=== PATIENT | female | born 1960 | race Caucasian/White ===

== ENCOUNTER 2017-07-10 08:33 | Emergency (ER) | payer OTHER ==
--- NOTE | 2017-07-10 11:14 | RAD ---
INDICATION: Blurry vision, word finding difficulty. COMPARISON: There are no prior studies available for comparison. TECHNIQUE: Contiguous axial sections of the brain were obtained from the skull base to the vertex without contrast. FINDINGS: The ventricles, cisterns and sulci are within normal limits. No significant focal abnormality or mass effect is seen. There is no evidence for hemorrhage. No significant focal osseous abnormality is seen. The visualized portion of the paranasal sinuses and mastoid air cells appear clear. IMPRESSION: NO EVIDENCE FOR GROSS ACUTE INFARCT, MASS EFFECT OR HEMORRHAGE.
--- NOTE | 2017-07-10 11:28 | RAD ---
INDICATION: Chest pain. COMPARISON: Comparison is made with a prior study from [facility] 2003. TECHNIQUE: A portable view of the chest was obtained. FINDINGS: Cardiac and mediastinal contours appear to be within normal limits. The lungs are clear. No pleural effusion is seen. There are nodular densities which project above both lung bases most consistent with nipple shadows. IMPRESSION: NO EVIDENCE FOR ACUTE DISEASE.
[2017-07-10 11:29] LABS: Hematocrit 40 % (35-47); Hemoglobin 13.3 g/dl (12.0-16.0); Mean Corpuscular HGB Conc 33 g/dl (31-36); Mean Corpuscular Hemoglobin 28 pg (27-31); Mean Corpuscular Volume 85 fL (80-97); Mean Platelet Volume 9 um3 (7.4-10.4); Red Blood Count 4.75 10^6/ul (4.0-5.4); Red Cell Distribution Width 13 % (10.5-15); White Blood Count 4.6 10^3/ul (3.5-10.8)
[2017-07-10 11:38] LABS: Urine Bilirubin Negative (Negative); Urine Glucose Negative (Negative); Urine Nitrite Negative (Negative)
[2017-07-10 11:49] LABS: Albumin 4.1 g/dL (3.2-5.2); BUN/Creatinine Ratio 10.4 (8-20); Calcium 9.4 mg/dL (8.6-10.3); EGFR African American 100.5 (>60); EGFR Non-African American 78.1 (>60); Globulin 2.5 g/dL (2-4); Potassium 3.7 mmol/L (3.5-5.0); Total Bilirubin 1.1 mg/dL (0.2-1.0); Total Protein 6.6 g/dL (6.4-8.9)
[2017-07-10 12:11] LABS: TSH (Thyroid Stimulating Horm) 4.17 mcIU/mL (0.34-5.60)
[2017-07-10 12:13] LABS: Free T4 1.06 ng/dL (0.61-1.12)
[2017-07-10] MEDS ORDERED: Meclizine TAB* 12.5 MG PO ONE (13:07)
[2017-07-10 15:17] VITALS: BP 102/73
--- NOTE | 2017-07-11 14:16 | ED ---
Manju Brandon Alfonso, scribed for Alexandru Trent MD on 07/10/17 at 1046 . Dizziness - HPI Summary HPI Summary: This patient is a 56 year old F presenting to [facility] accompanied by with a chief complaint of dizziness progressively worsening since a few weeks ago, worse since 3 days ago. She states I feel off balance and experiences a picture of the room spinning for a minute. The patient rates the pain 0/10 in severity. Symptoms aggravated by turning her head. Symptoms alleviated by nothing. Patient reports nausea, loss of appetite, more frequency BM ( also), abdominal pain (last week before the dizziness), numbness and tingling of the LLE below the knee (months), fatigue, CP (intermittent 3-4 minute episodes aggravated by nothing), crying, confusion, difficulty word finding, blurred vision, flashing light in left eye, tinnitus (1 minute), and pain with swallowing. Patient denies headache, ear ache, hearing loss, sinus congestion, back pain, and leg weakness. - History Of Current Complaint Chief Complaint: EDDizziness Stated Complaint: DIZZY Time Seen by Provider: 07/10/17 08:54 Hx Obtained From: Patient Onset/Duration: Still Present Timing: Intermittent Episode Lasting - minute Character: Room Spinning Aggravating Factor(s): Change In Head Position Alleviating Factor(s): Nothing Associated Signs And Symptoms: Positive: Other: - Patient reports nausea, loss of appetite, more frequency BM ( also), abdominal pain (last week before the dizziness), numbness and tingling of the LLE below the knee (months), fatigue, CP (intermittent 3-4 minute episodes aggravated by nothing), crying, confusion, difficulty word finding, blurred vision, flashing light in left eye, tinnitus (1 minute), and pain with swallowing. Patient denies headache, ear ache , hearing loss, and sinus congestion, back pain, and leg weakness. - Allergies/Home Medications Allergies/Adverse Reactions: Allergies Allergy/AdvReac Type Severity Reaction Status Date / Time Acetaminophen [From Percocet] Allergy See Comment Verified 07/10/17 09:03 Oxycodone [From Percocet] Allergy See Comment Verified 07/10/17 09:03 Penicillins [PCN] Allergy Nausea And Verified 07/10/17 09:03 Vomiting STATES ALLERGIC TO MANY DRUGS Allergy Unknown Uncoded 07/10/17 08:37 Reaction Details PMH/Surg Hx/FS Hx/Imm Hx Musculoskeletal History: Comment Only: Hx Rheumatoid Arthritis - ARTHRITIS Opthamlomology History: Denies: Hx Legally Blind EENT History: Denies: Hx Deafness Infectious Disease History: No Infectious Disease History: Denies: Traveled Outside the [place] in Last 30 Days - Family History Known Family History: Positive: Cardiac Disease, Other - Bipolar - Social History Alcohol Use: None Substance Use Type: Reports: None Smoking Status (MU): Former Smoker Review of Systems Positive: Fatigue. Negative: Fever, Chills Positive: Blurred Vision, Other - , flashing light in left eye, tinnitus (1 minute). Negative: Erythema Positive: Other - pain with swallowing; negative hearing loss, sinus congestion. Negative: Sore Throat, Ear Ache Positive: Chest Pain Negative: Shortness Of Breath, Cough Positive: Abdominal Pain, Nausea, Other - loss of appetite, more frequency BM ( also). Negative: Vomiting Negative: dysuria, hematuria Positive: Other - Negative back pain. Negative: Myalgia, Edema Negative: Rash Neurological: Other - Dizziness, numbness and tingling of the LLE below the knee (months), crying, confusion, difficulty word finding; negative headache, leg weakness All Other Systems Reviewed And Are Negative: Yes Physical Exam - Summary Physical Exam Summary: Constitutional: Well-developed, Well-nourished, Alert. (-) Distressed Skin: Warm, Dry HENT: Normocephalic; Atraumatic Eyes: Conjunctiva normal Eyes: Conjunctiva normal. Josiah-Hallpike Test Left sided a little nystagmus and Right sided large amplitude nystagmus Neck: Musculoskeletal ROM normal neck. (-) JVD, (-) Stridor, (-) Tracheal deviation Cardio: Rhythm regular, rate normal, Heart sounds normal; Intact distal pulses; The pedal pulses are 2+ and symmetric. Radial pulses are 2+ and symmetric. (-) Murmur Pulmonary/Chest wall: Effort normal. (-) Respiratory distress, (-) Wheezes, (-) Rales Abd: Soft. (-) Tenderness, (-) Distension, (-) Guarding, (-) Rebound Musculoskeletal: (-) Edema Lymph: (-) Cervical adenopathy Neuro: Alert, Oriented x3, Strength normal, Cranial nerves II-XII are grossly intact. (-) Dysmetria, (-) Nystagmus, (-) Ataxia by finger to nose testing, (-) Sensory deficit. Psych: Mood and affect Normal Triage Information Reviewed: Yes Vital Signs On Initial Exam: Initial Vitals Temp Pulse Resp BP Pulse Ox 97.5 F 95 16 126/73 99 07/10/17 08:37 07/10/17 08:37 07/10/17 08:37 07/10/17 08:37 07/10/17 08:37 Vital Signs Reviewed: Yes - Kj Coma Scale Coma Scale Total: 15 Diagnostics - Vital Signs Vital Signs Temp Pulse Resp BP Pulse Ox 07/10/17 08:56 18 07/10/17 08:51 85 22 100 07/10/17 08:49 122/71 07/10/17 08:37 97.5 F 95 16 126/73 99 - Laboratory Result Diagrams: 07/10/17 10:56 07/10/17 10:56 Lab Statement: Any lab studies that have been ordered have been reviewed, and results considered in the medical decision making process. - Radiology CXR Radiology Interpretation Completed By: Radiologist - NO EVIDENCE FOR ACUTE DISEASE. ED physician has reviewed this radiology report and agrees. - CT Brain CT Interpretation Completed By: Radiologist - NO EVIDENCE FOR GROSS ACUTE INFARCT, MASS EFFECT OR HEMORRHAGE. ED physician has reviewed this radiology report and agrees. - EKG 1047 Cardiac Rate: NL - 70 BPM EKG Rhythm: Sinus Rhythm EKG Interpretation: No STEMI Re-Evaluation - Re-Evaluation First Eval Re-Evaluation Time: 15:05 Change: Improved Dizzy Course/Dx - Course Assessment/Plan: This patient is a 56 year old F presenting to [facility] accompanied by with a chief complaint of dizziness progressively worsening since a few weeks ago, worse since 3 days ago. She states I feel off balance and experiences a picture of the room spinning for a minute. The patient rates the pain 0/10 in severity. Symptoms aggravated by turning her head. Symptoms alleviated by nothing. Patient reports nausea, loss of appetite, more frequency BM ( also), abdominal pain (last week before the dizziness ), numbness and tingling of the LLE below the knee (months), fatigue, CP ( intermittent 3-4 minute episodes aggravated by nothing), crying, confusion, difficulty word finding, blurred vision, flashing light in left eye, tinnitus ( 1 minute), and pain with swallowing. Patient denies headache, ear ache, hearing loss, sinus congestion, back pain, and leg weakness. An EKG reveals NSR. CT brain reveals NO EVIDENCE FOR GROSS ACUTE INFARCT, MASS EFFECT OR HEMORRHAGE. ED physician has reviewed this radiology report and agrees. CXR reveals NO EVIDENCE FOR ACUTE DISEASE. ED physician has reviewed this radiology report and agrees. Patient will be discharged with prescription for Antivert and follow up from ENT and PCP. The patient is agreeable with this plan. - Diagnoses Provider Diagnoses: Positional vertigo Discharge - Discharge Plan Condition: Stable Disposition: HOME Prescriptions: Meclizine TAB* [Antivert 12.5 TAB*] 25 mg PO Q8H PRN #12 tab PRN Reason: Vertigo Patient Education Materials: Vertigo (ED) Referrals: Bonilla Marcial MD [Medical Doctor] - 3 Days Pedro Wright MD [Primary Care Provider] - 1 Week Additional Instructions: RETURN TO THE EMERGENCY DEPARTMENT FOR CHANGING OR WORSENING SYMPTOMS The documentation as recorded by the Manju chen Alfonso accurately reflects the service I personally performed and the decisions made by , Alexandru Trent MD.
== END 2017-07-10 15:25 | disposition home or self-care (01) ==
LOC: ED 08:33
DX: H81.10 Benign paroxysmal vertigo, unspecified ear (principal); R11.0 Nausea; R53.83 Other fatigue; H53.8 Other visual disturbances
CPT/HCPCS: 36415; 70450; 71010; 80053; 81003; 83605; 83735; 84439; 84443; 84484; 85025; 93005; 99282; A9270-GY

== ENCOUNTER 2019-02-02 15:06 | Emergency (ER) | payer OTHER ==
[2019-02-02 15:20] VITALS: BP 126/79
--- NOTE | 2019-02-02 15:53 | UC ---
Bite Injury/Animal HPI - HPI Summary HPI Summary: WHILE PLANTING A TREE LATE THIS MORNING HER NEIGHBOR CAME TO HELP HER AT WHICH POINT THE NEIGHBOR'S DOG LUNGED AND BIT THE PATIENT'S RIGHT UPPER ARM AND RIGHT THIGH. NEIGHBORS STATES HER DOG IS UP-TO-DATE ON ALL VACCINATIONS. PATIENT REPORTS HAVING AN ALLERGY TO TDAP SO IS NOT UP-TO-DATE. 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 Severity Currently: Moderate Severity Initially: Moderate Pain Intensity: 0 Pain Scale Used: 0-10 Numeric Onset/Duration: Sudden Onset, Lasting Hours, Still Present Type of Bite: Pet Has Animal Been Immunized?: Yes Character: Puncture, Abrasion/Laceration Aggravating Factor(s): Nothing Alleviating Factor(s): Nothing Associated Signs And Symptoms: Positive: Erythema, Swelling Animal Available for Observation: Yes Animal Control Notified: Yes - Allergies/Home Medications Allergies/Adverse Reactions: Allergies Allergy/AdvReac Type Severity Reaction Status Date / Time acetaminophen Allergy See Comment Verified 02/02/19 15:25 oxycodone Allergy See Comment Verified 02/02/19 15:25 Penicillins Allergy Rash Verified 02/02/19 15:25 DPT VACCINE Allergy Anaphylatic Uncoded 09/12/17 12:54 Shock STATES ALLERGIC TO MANY DRUGS Allergy Unknown Uncoded 09/12/17 12:54 Reaction Details PMH/Surg Hx/FS Hx/Imm Hx Previously Healthy: Yes - Surgical History Surgical History: None Surgery Procedure, Year, and Place: MYOMECTOMY 2005. LAPRASCOPIC 2004 EXPLORITORY - Family History Known Family History: Positive: Cardiac Disease, Other - Bipolar - Social History Alcohol Use: Weekly Substance Use Type: None Smoking Status (MU): Former Smoker Have You Smoked in the Last Year: No When Did the Patient Quit Smoking/Using Tobacco: 09/25/1990 - Immunization History Most Recent Tetanus Shot: >10 years ago Review of Systems All Other Systems Reviewed And Are Negative: Yes Constitutional: Positive: Negative Skin: Positive: Other - DOG BITE Respiratory: Positive: Negative Cardiovascular: Positive: Negative Gastrointestinal: Positive: Negative Physical Exam Triage Information Reviewed: Yes Appearance: Well-Appearing, No Pain Distress, Well-Nourished Vital Signs: Initial Vital Signs Temp 98.3 F 02/02/19 15:13 Pulse 86 02/02/19 15:13 Resp 16 02/02/19 15:13 BP 126/79 02/02/19 15:13 Pulse Ox 98 02/02/19 15:13 Eyes: Positive: Conjunctiva Clear ENT: Positive: Hearing grossly normal Neck: Positive: Supple Respiratory: Positive: No respiratory distress, No accessory muscle use Cardiovascular: Positive: Pulses Normal Abdomen Description: Positive: Soft Musculoskeletal: Positive: No Edema Neurological: Positive: Alert Psychological: Positive: Age Appropriate Behavior Skin: Positive: Other - 3 CM SUPERFICIAL ABRASION MID LATERAL UPPER ARM WITH SURROUNDING BRUISING AND SOFT TISSUE SWELLING. NO DRAINAGE OR ACTIVE BLEEDING. 2 PUNCTURE WOUNDS RIGHT UPPER THIGH WITH SURROUNDING BRUISING AND SOFT TISSUE SWELLING. NO DRAINAGE OR ACTIVE BLEEDING Bite Injury Course/Dx - Course Course Of Treatment: DOXYCYCLINE TWICE DAILY FOR 10 DAYS TO PREVENT DEVELOPING INFECTION. PATIENT REPORTS AN ADVERSE REACTION TO TDAP VACCINE IN THE PAST SO DECLINES RECEIVING A BOOSTER TODAY. STATES SHE'LL FOLLOW-UP WITH HER PCP ABOUT THIS. HEALTH DEPARTMENT HAS BEEN NOTIFIED ABOUT THIS CASE AND THEY STATE THEY WILL FOLLOW-UP WITH THE PATIENT ON MONDAY THE DOG IS AVAILABLE FOR OBSERVATION. NO RABIES PROPHYLAXIS INDICATED TODAY. - Differential Dx/Diagnosis Provider Diagnosis: Dog bite of arm, Dog bite of right thigh Discharge - Sign-Out/Discharge Documenting (check all that apply): Patient Departure All imaging exams completed and their final reports reviewed: No Studies - Discharge Plan Condition: Stable Disposition: HOME Prescriptions: Doxycycline Monohydrate 1 cap PO BID #20 cap Patient Education Materials: Animal Bite (ED) Referrals: Pedro Wright MD [Primary Care Provider] - As Soon As Possible Additional Instructions: WILL COVER FOR INFECTION WITH ANTIBIOTICS TODAY. TAKE TWICE DAILY FOR THE FULL 10 DAYS. KEEP WOUNDS CLEAN AND DRY. COVER WITH ANTIBIOTIC OINTMENT AND A NONSTICK BANDAGE. THE HEALTH DEPARTMENT HAS BEEN CALLED TODAY AND ADVISED OF YOUR CASE. THEY WILL BE FOLLOWING UP WITH YOU ON MONDAY. FOLLOW-UP WITH DR. LAW MCCALL TO DISCUSS YOUR TETANUS BOOSTER STATUS. - Billing Disposition and Condition Condition: STABLE Disposition: Home
== END 2019-02-02 16:00 | disposition home or self-care (01) ==
LOC: UCEAST 15:06
DX: S40.811A Abrasion of right upper arm, initial encounter (principal); S71.131A Puncture wound without foreign body, right thigh, initial encounter; W54.0XXA Bitten by dog, initial encounter; Y93.H2 Activity, gardening and landscaping; Y92.096 Garden or yard of other non-institutional residence as the place of occurrence of the external cause; Z88.6 Allergy status to analgesic agent; Z88.5 Allergy status to narcotic agent; Z88.0 Allergy status to penicillin; Z88.7 Allergy status to serum and vaccine; Z87.891 Personal history of nicotine dependence
CPT/HCPCS: 99212; G0463

== ENCOUNTER 2019-07-28 17:20 | Emergency (ER) | payer OTHER ==
--- NOTE | 2019-07-28 18:42 | ED ---
Neurological HPI - HPI Summary HPI Summary: 59 year old F [facility] accompanied by complains of an episode of blurred vision and visual changes which involved patient seeing rainbows that lasted for 10 minutes at 15:30 today 07/28. Patient notes she had an episode of visual changes in her 20s when she saw lightning flashes. No hx ocular migraines. Earlier today 07/28 around 12:00, patient states that after her read something to her, she had no memory of it. States she called PCP and was referred to ED. Additionally complains of constant, throbbing right upper extremity pain which reminded her of when she had hx shingles over 1 year ago. Patient also states she had an episode of racing heart beat 10 days ago. States she went to PCP last week to be seen for these sx and was put on Valtrex , which she took last time she had shingles. Patient is on Valtrex BID currently and states she started taking it on 07/25 PM. Patient also reports lower back pain which traveled to her upper back and bilateral shoulders this morning which felt similar to her arm pain. This morning, developed left shoulder pain which she has never had before. Now, states she feels nauseous and dizzy but has had these days before she developed musculoskeletal pain. The patient rates the pain 2/10 in severity. Symptoms aggravated by nothing. Symptoms alleviated by nothing. 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 States she lost speech ability for several minutes after receiving DPT vaccination. Hx vertigo 1 year ago. - History of Current Complaint Chief Complaint: EDNeurologicalDeficit Stated Complaint: POSSIBLE TIA PER PT Time Seen by Provider: 07/28/19 18:33 Hx Obtained From: Patient Hx Last Menstrual Period: pitch filler Onset/Duration: Started hours ago, Resolved Timing: Constant Current Severity: Mild Pain Intensity: 2 Pain Scale Used: 0-10 Numeric Aggravating: Nothing Alleviating: Nothing - Allergy/Home Medications Allergies/Adverse Reactions: Allergies Allergy/AdvReac Type Severity Reaction Status Date / Time acetaminophen Allergy See Comment Verified 02/02/19 15:25 oxycodone Allergy See Comment Verified 02/02/19 15:25 Penicillins Allergy Rash Verified 02/02/19 15:25 DPT VACCINE Allergy Anaphylatic Uncoded 09/12/17 12:54 Shock STATES ALLERGIC TO MANY DRUGS Allergy Unknown Uncoded 09/12/17 12:54 Reaction Details PMH/Surg Hx/FS Hx/Imm Hx Endocrine/Hematology History: Denies: Hx Diabetes Cardiovascular History: Denies: Hx Hypertension Musculoskeletal History: Comment Only: Hx Rheumatoid Arthritis - ARTHRITIS Neurological History: Reports: Hx Seizures - grand mal, Other Neuro Impairments/ Disorders - neuro toxic poisioning, vertigo - Surgical History Surgery Procedure, Year, and Place: MYOMECTOMY 2004. LAPRASCOPIC 2004 EXPLORITORY Infectious Disease History: No Infectious Disease History: Reports: Hx Shingles - 2014 Denies: Traveled Outside the [place] in Last 30 Days - Family History Known Family History: Positive: Cardiac Disease, Other - Bipolar - Social History Alcohol Use: Weekly Substance Use Type: Reports: None Hx Tobacco Use: Yes Smoking Status (MU): Former Smoker Have You Smoked in the Last Year: No Review of Systems Positive: Blurred Vision, Other - visual changes Positive: Other - right upper extremity pain, left upper extremity pain, bilateral shoulders pain, back pain Neurological: Other - amnesia All Other Systems Reviewed And Are Negative: Yes Physical Exam - Summary Physical Exam Summary: Constitutional: Well-developed, Well-nourished, Alert. (-) Distressed Skin: Warm, Dry HENT: Normocephalic; Atraumatic Eyes: Conjunctiva normal Neck: Musculoskeletal ROM normal neck. (-) JVD, (-) Stridor, (-) Nuchal rigidity Cardio: Rhythm regular, rate normal, Heart sounds normal; Intact distal pulses; Radial pulses are 2+ and symmetric. (-) Murmur Pulmonary/Chest wall: Effort normal. (-) Respiratory distress, (-) Wheezes, (-) Rales Abd: Soft, (-) tenderness, (-) Distension, (-) Guarding, (-) Rebound Musculoskeletal: (-) Edema Lymph: (-) Cervical adenopathy Neuro: Alert, Oriented x3 Psych: Mood and affect Normal Triage Information Reviewed: Yes Vital Signs On Initial Exam: Initial Vitals Temp Pulse Resp BP Pulse Ox 97.1 F 89 16 120/97 98 07/28/19 17:24 07/28/19 17:24 07/28/19 17:24 07/28/19 17:24 07/28/19 17:24 Vital Signs Reviewed: Yes Procedures - Sedation Patient Received Moderate/Deep Sedation with Procedure: No Diagnostics - Vital Signs Vital Signs Temp Pulse Resp BP Pulse Ox 07/28/19 17:24 97.1 F 89 16 120/97 98 - Laboratory Result Diagrams: 07/28/19 19:58 07/28/19 19:58 Lab Statement: Any lab studies that have been ordered have been reviewed, and results considered in the medical decision making process. - CT Brain CT Interpretation Completed By: Radiologist Summary of CT Findings: No acute intracranial abnormality. ED physician has reviewed this report. - EKG 1917 Cardiac Rate: NL - 75 BPM EKG Rhythm: Sinus Rhythm Summary of EKG Findings: An EKG at 19:18 reveals normal sinus rhythm 75 BPM, nml axis, nml intervals. No STEMI. No acute changes. Re-Evaluation - Re-Evaluation First Eval Re-Evaluation Time: 20:34 Comment: updated on negative CT findings. agrees to d/c and f/u with neurology Second Eval Re-Evaluation Time: 20:55 Comment: TSH 2.86. will d/c pt Course/Dx - Course Course Of Treatment: 59 y/o F pw several complaints. 1) episodes of palpitations- EKG, electrolytes, CBC and TSH WNL. 2) myaglias/concern for shingles - no rash on exam, has myalgias in various locations, do not suspect shingles. Told she can continue valtrex if she would like but my suspicion is low. 3) episode of confusion/visual disturbance - possibly occular migraine, hx similar in past. AAOx3 here, no focal deficits, head CT normal She can f/u w neuro outpatient. - Diagnoses Provider Diagnoses: Myalgia, Visual disturbance - Physician Notifications Discussed Care Of Patient With: Igor Vargas Time Discussed With Above Provider: 20:30 Instructed by Provider To: Other - Dr. Vargas, neurology agrees with our plan and states he would be happy to f/u with her outpatient Discharge ED - Sign-Out/Discharge Documenting (check all that apply): Patient Departure - Discharge - Discharge Plan Condition: Stable Disposition: HOME Patient Education Materials: Ocular Migraine (ED) Referrals: Pedro Wright MD [Primary Care Provider] - Igor Vargas MD [Medical Doctor] - Additional Instructions: You were seen in the emergency department for visual disturbances, muscle aches. Your brain CT did not show any abnormalities, your labs did not show any abnormalities. We discussed this with our on-call neurologist, Dr. Varags who suggests you can follow up outpatient his office. If any studies were not completed at the time of discharge you will be called with the relevant results. Please follow up with your primary care doctor in next 2-3 days and return to emergency department for worsening headaches, confusion, weakness or numbness or concerning symptoms. It was a pleasure taking care of you today. - Billing Disposition and Condition Condition: STABLE Disposition: Home - Attestation Statements Document Initiated by Jesse: Yes Documenting Scribe: Lindy Montoya Provider For Whom Jesse is Documenting (Include Credential): Robyn Moore MD Scribe Attestation: ILindy, scribed for Robyn Moore MD on 07/29/19 at 1256. Scribe Documentation Reviewed: Yes Provider Attestation: The documentation as recorded by the Lindy chen accurately reflects the service I personally performed and the decisions made by me, Robyn Moore MD Status of Scribe Document: Viewed
[2019-07-28 20:02] LABS: ABS Lymphocytes 0.7 10^3/ul (1.0-4.8); ABS Monocytes 0.2 10^3/ul (0-0.8); ABS Neutrophils 4.5 10^3/ul (1.5-7.7); Eosinophil % 0.2 %; Hematocrit 39 % (35-47); Lymphocyte % 13.5 %; Mean Corpuscular HGB Conc 34 g/dL (31-36); Mean Corpuscular Hemoglobin 28 pg (27-31); Mean Corpuscular Volume 84 fL (80-97); Platelet Count 193 10^3/uL (150-450); Red Cell Distribution Width 14 % (10-15); White Blood Count 5.5 10^3/uL (3.5-10.8)
[2019-07-28 20:19] LABS: Albumin 4.2 g/dL (3.2-5.2); Albumin/Globulin Ratio 1.9 (1-3); BUN/Creatinine Ratio 13.3 (8-20); Calcium 9.5 mg/dL (8.6-10.3); EGFR African American 96.4 (>60); EGFR Non-African American 79.6 (>60); Globulin 2.2 g/dL (2-4); Potassium 4.3 mmol/L (3.5-5.0); Total Bilirubin 0.6 mg/dL (0.2-1.0); Total Protein 6.4 g/dL (6.4-8.9)
[2019-07-28 20:51] LABS: TSH (Thyroid Stimulating Horm) 2.86 mcIU/mL (0.34-5.60)
[2019-07-28 21:06] VITALS: BP 111/70
== END 2019-07-28 21:06 | disposition home or self-care (01) ==
LOC: ED 17:20
DX: H53.9 Unspecified visual disturbance (principal); M79.10 Myalgia, unspecified site; M06.9 Rheumatoid arthritis, unspecified; Z87.891 Personal history of nicotine dependence; Z88.6 Allergy status to analgesic agent; Z88.5 Allergy status to narcotic agent; Z88.0 Allergy status to penicillin; Z88.7 Allergy status to serum and vaccine
CPT/HCPCS: 36415; 70450; 80053; 84443; 85025; 93005; 99283

== ENCOUNTER 2023-03-21 11:59 | Observation (INO) ==
[2023-03-21 16:51] LABS: ABS Lymphocytes 0.7 10^3/uL (1.0-4.8); ABS Monocytes 0.5 10^3/uL (0.0-0.9); ABS Neutrophils 1.9 10^3/uL (1.5-7.6); Eosinophil % 0.7 %; Hematocrit 40.9 % (35-45); Hemoglobin 13.8 g/dL (11.5-14.3); Lymphocyte % 22.9 %; Mean Corpuscular Hemoglobin 27.9 pg (27-33); Mean Corpuscular Hgb Conc 33.7 g/dL (31-36); Mean Corpuscular Volume 82.8 fL (80-97); Mean Platelet Volume 8.4 fL (7.5-11.2); Nucleated Red Blood Cells % 0.1 /100 WBC (0.0-0.4); Platelet Count 191 10^3/uL (150-450); Red Blood Count 4.94 10^6/uL (3.63-4.92); Red Cell Distribution Width 13.3 % (12-17); White Blood Count 3.2 10^3/uL (3.8-11.8)
[2023-03-21 17:35] LABS: Calcium 9.2 mg/dL (8.6-10.3); Creatinine, Serum 0.75 mg/dL (0.51-0.95); Globulin 3.1 g/dL (2-4); Potassium 3.7 mmol/L (3.5-5.0); Total Protein 7.1 g/dL (6.4-8.9); eGFR CKD-EPI 91.1 (>60)
[2023-03-21 17:36] LABS: Albumin/Globulin Ratio 1.3 (1-3); C Reactive Protein 22.56 mg/L (<8.01); Total Bilirubin 0.6 mg/dL (0.2-1.0)
[2023-03-21] MEDS ORDERED: cefTRIAXone 1 gm/50 mL D5W 1 GM/50 ML BAG IV ONE (17:58)
[2023-03-22] MEDS: Enoxaparin 40 MG/0.4 ML SYR SUBCUT SCH ×2 (01:52→22:53)
[2023-03-22 06:17] LABS: ABS Eosinophils 0.1 10^3/uL (0.0-0.5); ABS Lymphocytes 0.9 10^3/uL (1.0-4.8); ABS Monocytes 0.6 10^3/uL (0.0-0.9); ABS Neutrophils 1.6 10^3/uL (1.5-7.6); ABS Nucleated RBC 0.01 10^3/ul; Eosinophil % 2.5 %; Hematocrit 38.6 % (35-45); Lymphocyte % 28.4 %; Mean Corpuscular Hemoglobin 27.8 pg (27-33); Mean Corpuscular Hgb Conc 33.7 g/dL (31-36); Mean Corpuscular Volume 82.6 fL (80-97); Mean Platelet Volume 8.1 fL (7.5-11.2); Nucleated Red Blood Cells % 0.3 /100 WBC (0.0-0.4); Platelet Count 197 10^3/uL (150-450); Red Blood Count 4.67 10^6/uL (3.63-4.92); Red Cell Distribution Width 13.1 % (12-17); White Blood Count 3.2 10^3/uL (3.8-11.8)
[2023-03-22 06:32] LABS: Calcium 8.9 mg/dL (8.6-10.3); Creatinine, Serum 0.71 mg/dL (0.51-0.95); Magnesium 2.1 mg/dL (1.9-2.7); Potassium 3.9 mmol/L (3.5-5.0); eGFR CKD-EPI 97.3 (>60)
[2023-03-22] MEDS ORDERED: ceFAZolin 2 GM in NS PREMIX 2 GM/100 ML BAG IVPB SCH (09:00)
[2023-03-22] MEDS: ceFAZolin 2 GM PREMIX 2 GM/50 ML BAG IV SCH ×2 (09:44→18:02)
[2023-03-23] MEDS: ceFAZolin 2 GM PREMIX 2 GM/50 ML BAG IV SCH ×2 (01:23→09:17)
[2023-03-23 06:52] LABS: ABS Eosinophils 0.1 10^3/uL (0.0-0.5); ABS Lymphocytes 1.1 10^3/uL (1.0-4.8); ABS Monocytes 0.4 10^3/uL (0.0-0.9); ABS Neutrophils 1.9 10^3/uL (1.5-7.6); Eosinophil % 2.7 %; Hematocrit 39.9 % (35-45); Hemoglobin 13.2 g/dL (11.5-14.3); Lymphocyte % 30.9 %; Mean Corpuscular Hemoglobin 27.8 pg (27-33); Mean Corpuscular Hgb Conc 33.2 g/dL (31-36); Mean Corpuscular Volume 83.7 fL (80-97); Mean Platelet Volume 8.1 fL (7.5-11.2); Nucleated Red Blood Cells % 0.1 /100 WBC (0.0-0.4); Platelet Count 232 10^3/uL (150-450); Red Blood Count 4.76 10^6/uL (3.63-4.92); Red Cell Distribution Width 12.9 % (12-17); White Blood Count 3.5 10^3/uL (3.8-11.8)
[2023-03-23 11:07] VITALS: BP 118/78
[2023-03-24 20:13] LABS: Anaplasma phagocytophilum Negative (Negative); B. miyamotoi PCR, B Negative (Negative); Babesia divergens/MO-1 Negative (Negative); Babesia ducani Negative (Negative); Ehrlichia chaffeensis Negative (Negative); Ehrlichia ewingii/canis Negative (Negative); Ehrlichia muris eauclairensis Negative (Negative)
== END 2023-03-23 11:40 | disposition home or self-care (01) ==
LOC: ED 11:59 → EDHOLD 11:59 → SUATTDRO 18:54 → MED 22:33
PROVIDERS: ADMIT Internal Medicine; ATTEND Internal Medicine